=== PATIENT | female | born 1985 | race Caucasian/White ===

== ENCOUNTER → 2016-06-18 | Outpatient (CLI) | payer OTHER ==
[~2016-06-18] MED LIST: ACETAMINOPHEN PO; AMOXICILLIN875 MG PO; NORCO1 TAB 10/3 PO
--- NOTE | ~2016-06-18 | MR17 ---
[facility] A Service of [facility] / [facility] RADIOLOGY TEXT RESULTS PATIENT: KISHORE VEGA LOCATION: [facility] : 85 UNIT #: [id number] AGE: [address]: Kwaku Doctor NOT IN SYSTEM SEX: F ORDER DR: [id number] [facility] [address] [place], [place] [address] [id number] O MR#: [id number] Acc #: [id number] NAME: KISHORE VEGA. : 1985 SEX: F STUDY DATE/TIME: 06/18/2016 9:11 UNIT: [facility] ROOM: STUDY DESCRIPTION: MR Brain WWo Contrast Attending Physician: Kwaku Doctor Not In System Ordering Physician: Physician Non-Staff Primary Care Physician: Mahogany Griffin A.P.R.N. MRI CENTER REPORT This report is preliminary unless electronic signature is present. EXAM Brain MRI without contrast, 06/18/2016 PROCEDURE Routine unenhanced brain MRI. COMPARISON Prior MRI dated 08/31/2009. CLINICAL HISTORY Bilateral papilledema on funduscopic exam. Brain MRI recommended on that basis. This was identified approximately 1 week ago. FINDINGS There is no MR evidence of restricted diffusion. There is no hydrocephalus or extraaxial fluid collection, and brain parenchymal signal is normal. The supra and parasellar regions are symmetrically normal. There is no evidence of supra or intra or parasellar mass. Region of the optic chiasm and optic tracts are unremarkable. Nondetailed MR images of the orbits are normal. Bone marrow signal is normal. Normal flow voids are seen in the cerebral vessels. IMPRESSION Normal unenhanced brain MRI. Dictated by... Kemar Morales M.D. THIS IS AN ELECTRONICALLY VERIFIED REPORT Kemar Morales M.D. at 06/21/2016 4:00 PM [facility] A Service of [facility] / [facility] RADIOLOGY TEXT RESULTS PATIENT: KISHORE VEGA [facility] UN[facility] #: [id number] AGE: [address]: Generic Doctor NOT IN SYSTEM SEX: F ORDER DR: Chris TD: 06/19/2016 23:06 JOB #: [id number] MRI CENTER REPORT Page 1 of 1 COPY
--- NOTE | ~2016-06-18 | MR148 ---
[facility] A Service of [facility] RADIOLOGY TEXT RESULTS PATIENT: KISHORE VEGA [facility] UN[facility] #: [id number] AGE: [address]: Kwaku Doctor NOT IN SYSTEM SEX: F ORDER DR: [id number] [facility] [address] [place], [place] [address] [id number] O MR#: [id number] Acc #: [id number] NAME: KISHORE VEGA. : 1985 SEX: F STUDY DATE/TIME: 06/18/2016 10:17 UNIT: [facility] ROOM: STUDY DESCRIPTION: MR Orbit Face and or Neck WWo Attending Physician: Kwaku Doctor Not In System Ordering Physician: Physician Non-Staff Primary Care Physician: Mahogany Griffin A.P.R.N. MRI CENTER REPORT This report is preliminary unless electronic signature is present. EXAM Orbit MR with and without contrast, 06/18/2016 CLINICAL HISTORY Recently diagnosed with papilledema 1 week previous with mild blurred vision. FINDINGS The intra and extraconal fat and lacrimal glands are normal. Optic nerves are normal and symmetric in signal. The supra and parasellar regions, optic chiasm and tracts appear normal and the cavernous sinus appears normal bilaterally. Meckel's cave there is somewhat dilated on each side, but no soft tissue mass is seen. Pituitary stalk is thin and midline. Postcontrast images show no orbital mass. There does appear to be bilateral proptosis. IMPRESSION Bilateral proptosis, otherwise normal orbit MR with and without contrast. Dictated by... Kemar Morales M.D. THIS IS AN ELECTRONICALLY VERIFIED REPORT Kemar Morales M.D. at 06/21/2016 3:59 PM JAMIE/tamra TD: 06/19/2016 23:18 JOB #: [id number] MRI CENTER REPORT Page 1 of 1 COPY
== END | disposition home or self-care (01) ==
LOC: CMRI 08:30
DX: H46.03 Optic papillitis, bilateral (principal); H05.20 Unspecified exophthalmos
CPT/HCPCS: 70543; 70553; A9577